=== PATIENT | male | born 1980 | race Two or more races ===

== ENCOUNTER 2016-10-12 14:21 | Emergency (ER) | payer SELFPAY ==
[~2016-10-12] VITALS: Ht 170.2 cm; Wt 72.6 kg
[2016-10-12 14:40] VITALS: BP 135/94
[2016-10-12] MEDS ORDERED: HYDROCODONE/APAP 5/325MG TABLET. ONE (14:58)
[2016-10-12] MEDS ORDERED: DIPHTH,PERTUSS(ACELL),TET TOX 0.5 ML DISP.SYRIN. VAX IM ONE ×2 (14:58→15:00)
[2016-10-12] MEDS ORDERED: BUPIVACAINE 0.5% 50 ML VIAL. ONE (14:58)
[2016-10-12] MEDS ORDERED: HYDROCODONE/APAP 5/325MG TABLET. PO ONE (15:00)
[2016-10-12] MEDS ORDERED: BUPIVACAINE 0.5% 50 ML VIAL. IJ ONE (15:00)
[2016-10-12] MEDS ORDERED: LIDOCAINE/EPI/TETRACAINE TOPICAL GEL 3 ML. TP ONE (15:00)
--- NOTE | 2016-10-12 15:19 | PHYS DOC ---
Past Medical History Past Medical History: No Pertinent History Past Surgical History: No Surgical History Alcohol Use: Rarely Drug Use: None Adult General Chief Complaint Chief Complaint: LACERATION/AVULSION HPI HPI Patient is a 35 year old Korean-speaking male who presents with right thigh laceration, patient states he accidentally cut himself with her saw. 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 of Systems Review of Systems Constitutional: Denies fever or chills [] Eyes: Denies change in visual acuity, redness, or eye pain [] Musculoskeletal: Denies back pain or joint pain [] Integument: Right thigh laceration Neurologic: Denies headache, focal weakness or sensory changes [] Endocrine: Denies polyuria or polydipsia [] Current Medications Current Medications Current Medications Medications (Trade) Dose Ordered Sig/Christian Start Time Stop Time Status Last Admin Dose Admin Acetaminophen/ Hydrocodone Bitart (Lortab 5/325) 1 tab STK-MED ONCE 10/12/16 14:58 10/12/16 14:59 DC Bupivacaine HCl (Marcaine 0.5%) 50 ml STK-MED ONCE 10/12/16 14:58 10/12/16 14:59 DC Diphtheria/ Tetanus/Acell Pertussis (Boostrix) 0.5 ml STK-MED ONCE 10/12/16 14:58 10/12/16 14:59 DC Lidocaine/ Epinephrine (Let Topical) 3 ml 1X ONCE 10/12/16 15:00 10/12/16 15:01 DC 10/12/16 15:02 3 ML Allergies Allergies Allergies Coded Allergies Type Severity Reaction Last Updated Verified No Known Drug Allergies 10/12/16 No Physical Exam Physical Exam Constitutional: Well developed, well nourished, no acute distress, non-toxic appearance. [] HENT: Normocephalic, atraumatic, bilateral external ears normal, oropharynx moist, no oral exudates, nose normal. [] Eyes: PERRLA, EOMI, conjunctiva normal, no discharge. [] Skin: Right mid thigh with 2 lacerations, first laceration is approximately [id number] deep, second laceration is approx. 3X1 cm by 3 cm deep. There is no tendon involvement, full range of motion to the right lower extremity. +2 right pedal pulse. Cap refill less than 2 seconds the right lower extremity. Back: No tenderness, no CVA tenderness. [] Extremities: No tenderness, no cyanosis, no clubbing, ROM intact, no edema. [] Neurologic: Alert and oriented X 3, normal motor function, normal sensory function, no focal deficits noted. [] Psychologic: Affect normal, judgement normal, mood normal. [] Current Patient Data Vital Signs Vital Signs Date Time Temp Pulse Resp B/P Pulse Ox O2 Delivery O2 Flow Rate FiO2 10/12/16 15:00 Room Air 10/12/16 14:40 97.4 80 18 97 97.4 EKG EKG [] Radiology/Procedures Radiology/Procedures Indication: Right thigh lacerations Procedure: The patient was placed in the appropriate position and anesthesia around the laceration was let solution then 0.5% of bupivacaine adequate amount was injected to the laceration site. The area was cleaned with 200 ML of normal saline and Betadine. The first laceration-subcutaneous tissue was closed with 5 interrupted sutures using 3. 0 Vicryl, exterior laceration was closed with 9 interrupted sutures using 4. 0 Ethilon. The second laceration-subcutaneous tissue was closed with 3 interrupted sutures, exterior laceration was closed with 7 interrupted sutures using 4.0 Ethilon. Both lacerations were closed with nonstick dressing. Other Items: none The patient tolerated the procedure well Complications: none Repair done by me. Course & Med Decision Making Course & Med Decision Making Pertinent Labs and Imaging studies reviewed. (See chart for details) Patient is in the ED with right thigh laceration which was closed as noted in procedures. He was provided wound care instructions as well as return precautions. Give tetanus in the Ed. Dragon Disclaimer Dragon Disclaimer This electronic medical record was generated, in whole or in part, using a voice recognition dictation system. Departure Departure Impression: Primary Impression: Thigh laceration Disposition: 01 HOME, SELF-CARE Condition: STABLE Referrals: NO PCP (PCP) Patient Instructions: Diphtheria Toxoid; Tetanus Toxoid Adsorbed, DT, Td, Laceration Care, Adult, [id number] Additional Instructions: 1. Stitches to remain in for 10-14 days. 2. Review the discharge instructions provided for self-care and reasons to return to the emergency department. 3. Keep the bandage on for the next 24 hours. After that period of time, you can take the bandage off and shower. 4. Keep the area clean and dry and covered while you are working. 5. You need to have a wound check performed by Tuesday of this week. You can do this with a primary care doctor's office. If you do not have a primary care doctor, then use the pamphlet provided for assistance in finding one. If you're unable to schedule an appointment with a primary care doctor's office for wound check, then you can return to the emergency department for reevaluation. Problem Qualifiers Primary Impression: Thigh laceration Encounter type: initial encounter Laterality: right Qualified Code: S71.111A - Laceration without foreign body, right thigh, initial encounter [facility] Oct 12, 2016 15:19 JULIÁN SAVAGE APRN Oct 12, 2016 16:16
== END 2016-10-12 16:12 | disposition home or self-care (01) ==
LOC: ER 14:21
DX: S71.111A Laceration without foreign body, right thigh, initial encounter (principal); W27.8XXA Contact with other nonpowered hand tool, initial encounter; Y93.89 Activity, other specified; Y92.89 Other specified places as the place of occurrence of the external cause; Y99.8 Other external cause status
CPT/HCPCS: 12004; 90471; 90715; 99283; J3490

== ENCOUNTER 2016-10-22 12:13 | Emergency (ER) | payer SELFPAY ==
[2016-10-22 13:10] VITALS: BP 117/76
[2016-10-22] MEDS ORDERED: HYDR28CR15 TP (14:05)
--- NOTE | 2016-10-22 14:06 | PHYS DOC ---
Past Medical History Past Medical History: No Pertinent History Past Surgical History: No Surgical History Alcohol Use: Rarely Drug Use: None Adult General Chief Complaint Chief Complaint: SUTURE/STAPLE REMOVAL HPI HPI Patient is a 36 year old male who presents for suture removal from the right thigh, sutures have been in for 10 days, patient denies any problems with the wound healing. Review of Systems Review of Systems Constitutional: Denies fever or chills [] Eyes: Denies change in visual acuity, redness, or eye pain [] HENT: Denies nasal congestion or sore throat [] Musculoskeletal: Denies back pain or joint pain [] Integument:suture removal from the right thigh, Neurologic: Denies headache, focal weakness or sensory changes [] Endocrine: Denies polyuria or polydipsia [] Allergies Allergies Allergies Coded Allergies Type Severity Reaction Last Updated Verified No Known Drug Allergies 10/12/16 No Physical Exam Physical Exam Constitutional: Well developed, well nourished, no acute distress, non-toxic appearance. [] HENT: Normocephalic, atraumatic, bilateral external ears normal, oropharynx moist, no oral exudates, nose normal. [] Skin: Right ventral thigh with 2 laceration sites, both laceration sites are x- ray well approximated, there is scabbing over the laceration sites. Back: No tenderness, no CVA tenderness. [] Extremities: No tenderness, no cyanosis, no clubbing, ROM intact, no edema. [] Neurologic: Alert and oriented X 3, normal motor function, normal sensory function, no focal deficits noted. [] Psychologic: Affect normal, judgement normal, mood normal. [] Current Patient Data Vital Signs Vital Signs Date Time Temp Pulse Resp B/P Pulse Ox O2 Delivery O2 Flow Rate FiO2 10/22/16 13:10 98 65 14 117/76 96 Room Air 98.0 EKG EKG [] Radiology/Procedures Radiology/Procedures [] Course & Med Decision Making Course & Med Decision Making Pertinent Labs and Imaging studies reviewed. (See chart for details) Patient is in the ED for suture removal, approximately 7 stitches were removed from the laceration sites by me. Both laceration sites are well approximated and scabbing over. No infection. Recommended Neosporin to the area for 1 week. Follow-up with PCP as needed. Dragon Disclaimer Dragon Disclaimer This electronic medical record was generated, in whole or in part, using a voice recognition dictation system. Departure Departure Impression: Primary Impression: Visit for suture removal Disposition: 01 HOME, SELF-CARE Condition: STABLE Referrals: NO PCP (PCP) Follow-up with your doctor in one week Patient Instructions: Suture Removal Additional Instructions: You had stitches removed from the right thigh, keep the area clean and dry. Apply Neosporin to the area twice a day. Follow-up with your doctor in one week. Scripts Hydrocortisone (Neosporin)28 Gm Cream..g.28 Gm TP BID #1 [id number] apply to the thigh laceration site Prov:JULIÁN SAVAGE APRN 10/22/16 JULIÁN SAVAGE APRN Oct 22, 2016 14:05
== END 2016-10-22 14:16 | disposition home or self-care (01) ==
LOC: ER 12:13
DX: S71.111D Laceration without foreign body, right thigh, subsequent encounter (principal); X58.XXXD Exposure to other specified factors, subsequent encounter; Y92.89 Other specified places as the place of occurrence of the external cause; Y99.8 Other external cause status
CPT/HCPCS: 99283